=== PATIENT | male | born 1965 | race Caucasian/White ===

== ENCOUNTER 2023-08-21 14:15 | Inpatient (IN) ==
[2023-08-21] MEDS ORDERED: SODIUM CHLORIDE 0.9% 500 ML IV STA (14:37)
[2023-08-21] MEDS ORDERED: SODIUM CHLORIDE 0.9% IV STA ×4 (14:43→19:18)
[2023-08-21] MEDS ORDERED: PROCAINAMIDE IV STA ×4 (14:43→19:18)
[2023-08-21] MEDS ORDERED: PROCAINAMIDE 1,000 MG in SODIUM CHLORIDE 0.9% 240 ML IV SCH ×3 (14:45→17:00)
--- NOTE | 2023-08-21 14:52 | Emergency Department Note ---
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 The patient was getting a preop EKG and was found to have an abnormal EKG. He was sent to the emergency department for further evaluation. The patient has a history of Otbhx-Pcjgkthxw-Endgc. He denies having any chest pain or difficulty breathing. He states he felt dizzy since this morning. He denies having any fever. ROS: See above HPI for pertinent positives & negatives. A total of 10 systems reviewed and were otherwise negative. PAST MEDICAL HISTORY: See Below PAST SURGICAL HISTORY: See Below FAMILY HISTORY: See Below SOCIAL HISTORY: See Below HOME MEDICATIONS: See Below ALLERGIES: See Below VITALS: See Below PHYSICAL EXAMINATION: GENERAL: Patient is awake alert in no acute distress patient is resting comfortably and showing no signs of anxiety EYES: The conjunctivae are clear. The pupils are round and reactive. EARS, NOSE, MOUTH AND THROAT: The nose is without any evidence of any deformity. NECK: The neck is nontender and supple. RESPIRATORY: Normal respiratory effort is noted there is no evidence of wheezing rhonchi or rales CARDIOVASCULAR: Tachycardic and regular heart sounds were noted to auscultation. There is no definite murmur. GASTROINTESTINAL: The abdomen is soft. Abdomen is nontender. MUSCULOSKELETAL/EXTREMITIES: There is no evidence of gross deformity full range of motion is noted in the hips and shoulders. SKIN: There is no obvious evidence of any rash. There are no petechiae, pallor or cyanosis noted. NEUROLOGIC: Patient is awake alert and oriented x3 MEDICAL DECISION MAKING: The patient is a 58-year-old male who presented to the emergency department at the request of cardiology. The patient presented for preadmission testing for surgery on his knee. The patient was found to be in wide-complex tachycardia that could be consistent with atrial flutter. The patient had no specific symptoms but he states he was feeling dizzy since this morning. It is unclear exactly when he started having the symptoms. 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 He is never had atrial flutter or abnormal dysrhythmia associated with the WPW. The patient was treated with IV fluids in the emergency department. He was also treated with IV Ativan and IV procainamide. He was reevaluated multiple times. On reevaluation his rate improved slightly but he still appeared to be in atrial flutter. I discussed this condition with the on-call [facility] hollow handle knife assembler. I also discussed his condition with the on- call [facility] hospitalist. They have agreed to evaluate the patient in the emergency department for further management and disposition. Triage Nursing notes reviewed. Prior medical records reviewed Vital Signs: reviewed and remarkable for tachycardia. Differential diagnosis: Premature contractions, electrolyte abnormality, cardiac dysrhythmia, thyroid dysfunction, pulmonary embolism, infection, gastrointestinal, as well as other pathologies. ER treatment provided: See below Diagnostics interpreted by me: ECG: EKG was obtained in the emergency department. My interpretation is atrial flutter at 155 bpm. There was a right bundle branch block pattern. Nonspecific ST segment abnormalities were noted. This was compared to a tracing of September 23, 2020. Previous tracing revealed normal sinus rhythm. A second EKG was obtained in the emergency department. My interpretation is wide-complex tachycardia 133 bpm. This does appear to be consistent with atrial flutter. This was compared to the earlier tracing. There was a decrease in rate otherwise no significant changes were noted. Cardiac Monitoring: An order was placed for continuous cardiac monitoring. The monitor shows a rate of 132 bpm with atrial flutter. Laboratory studies: As stated above and show below. Imaging studies: See below. Radiographic imaging was reviewed by myself Consultation(s): I discussed this case with Dr. Lanier who is on-call for the [facility] cardiology group. ED COURSE: Procedures: none Critical Care: I have personally spent greater than 65 minutes of critical care time in the direct management of this patient. This includes bedside care, interpretation of diagnostic studies, and testing, discussion with consultants, patient, and family members, and other required patient management activities. This 65 minutes is in excess of all separately billable procedures. Past Med/Surg History Medical History Hypercalcemia Vitamin D deficiency Superior labrum refgdgxn-vw-qmvjgdshd (SLAP) tear of left shoulder 2020 Full thickness rotator cuff [facility] Elevated serum creatinine Family history of colon cancer History of anesthesia complications respiratory issues during colonoscopy 10/2019 [place] - says they had to stop the procedure WPW (Isrsb-Qtyxzorbo-Vwlfn syndrome) no hollow handle knife assembler Hypertension Hypercholesteremia Surgical History History of arthroscopic surgery of shoulder 2020 History of arthroscopy of left shoulder October 11, 2020 History of open reduction and internal fixation (ORIF) procedure right hand--hardware removed History of colonoscopy most recent 10/2019 [facility] History of tooth extraction all top teeth Family History Mother Myocardial infarction Breast cancer Hypertension Father Colorectal cancer at 47 secondary to colorectal cancer Other No family history of adverse response to anesthesia Denies family history of Ovarian cancer Prostate cancer Social History Smoking Status: Never smoker Tobacco Type: Smokeless Tobacco (Dip or Chew) Age Started Using Tobacco: 17; Cigarettes Per Day: chews 1 can a day; Second Hand Exposure: No; Do You Dip or Chew Tobacco: Yes; Hx Alcohol Use: Yes Alcohol type: beer Alcohol Intake Frequency: 4 or More x per/Week Alcohol Intake Frequency Comment: 2-3 per day Hx Substance Use: No Preferred Language: Beninese Communication Ability: Effective Visual Impairment: Partially Limited Hearing Ability: Normal Shipping Technician Required: No Beliefs That Will Affect Care: None marital status: single Current Living Situation: Alone current occupational status: employed current occupation: Construction How many Children do You have: 0 Feels Safe at Home: Yes Childhood Exposure to Second-Hand Smoke: Yes (father) Diet: regular caffeine: No during the past year weight has: remained stable Dental Care, Regularly: No Physical Activity Frequency: 5-6 Times per Week Physical Activity Frequency Comment: work Seatbelt Use: never Sunscreen Use: No Assistive Devices: Denture - Upper and Glasses Allergies Allergies Allergy/AdvReac Type Severity Reaction Status Date / Time lisinopril AdvReac Intermediate Cough Verified 08/21/23 15:09 Home Meds Previous Rx's Medication Instructions Recorded carvedilol 12.5 mg tablet 12.5 mg PO BID #60 tabs 11/26/22 losartan 100 mg tablet 100 mg PO DAILY #30 tabs 05/15/23 amlodipine 5 mg tablet 10 mg (2 x 5 mg) PO DAILY #60 tabs 06/19/23 atorvastatin 20 mg tablet 20 mg PO HS #30 tabs 06/19/23 Results & Data (ED) Vital Signs Vital Signs - 24 hr 08/21/23 14:31 08/21/23 14:32 08/21/23 14:32 Temperature 36.5 C Temperature Source Oral Pulse Rate 167 H 154 H Pulse Rate [Apical] Pulse Rate from SpO2 Sensor 154 H Respiratory Rate 20 22 Respiratory Effort / Characteristics Respiratory Depth Respiratory Pattern Blood Pressure 167/142 H 167/142 H Blood Pressure [Right Arm] Blood Pressure Mean 157 150 Blood Pressure Mean [Right Arm] Blood Pressure Position Lying Pulse Oximetry 98 99 Oxygen Delivery Method Room Air Room Air Sepsis Recent Fever Within 48 Hours No Sepsis New/Unexplained Change in Mental Status No Sepsis Action Taken by Nursing No Action Required 08/21/23 14:33 08/21/23 15:00 08/21/23 15:22 Temperature Temperature Source Pulse Rate 155 H 158 H 155 H Pulse Rate [Apical] Pulse Rate from SpO2 Sensor 156 H Respiratory Rate 19 28 H Respiratory Effort / Characteristics Respiratory Depth Respiratory Pattern Blood Pressure 142/108 H 157/107 H Blood Pressure [Right Arm] Blood Pressure Mean 119 123 Blood Pressure Mean [Right Arm] Blood Pressure Position Pulse Oximetry 97 96 Oxygen Delivery Method Room Air Room Air Sepsis Recent Fever Within 48 Hours Sepsis New/Unexplained Change in Mental Status Sepsis Action Taken by Nursing 08/21/23 15:30 08/21/23 15:40 08/21/23 15:43 Temperature Temperature Source Pulse Rate 155 H 160 H Pulse Rate [Apical] Pulse Rate from SpO2 Sensor 161 H 80 Respiratory Rate 30 H 30 H Respiratory Effort / Characteristics Respiratory Depth Respiratory Pattern Blood Pressure 159/121 H 158/102 H Blood Pressure [Right Arm] Blood Pressure Mean 133 120 Blood Pressure Mean [Right Arm] Blood Pressure Position Pulse Oximetry 95 96 97 Oxygen Delivery Method Room Air Room Air Room Air Sepsis Recent Fever Within 48 Hours Sepsis New/Unexplained Change in Mental Status Sepsis Action Taken by Nursing 08/21/23 15:50 08/21/23 16:00 08/21/23 16:05 Temperature Temperature Source Pulse Rate 155 H 150 H 150 H Pulse Rate [Apical] Pulse Rate from SpO2 Sensor 156 H 149 H 149 H Respiratory Rate 33 H 24 17 Respiratory Effort / Characteristics Respiratory Depth Respiratory Pattern Blood Pressure 142/105 H 146/111 H 136/114 H Blood Pressure [Right Arm] Blood Pressure Mean 117 122 121 Blood Pressure Mean [Right Arm] Blood Pressure Position Pulse Oximetry 97 98 98 Oxygen Delivery Method Room Air Room Air Room Air Sepsis Recent Fever Within 48 Hours Sepsis New/Unexplained Change in Mental Status Sepsis Action Taken by Nursing 08/21/23 16:09 08/21/23 16:10 08/21/23 16:15 Temperature Temperature Source Pulse Rate 154 H 153 H Pulse Rate [Apical] 156 H Pulse Rate from SpO2 Sensor 148 H 79 Respiratory Rate 29 H 22 42 H Respiratory Effort / Characteristics Non-Labored Spontaneous Respiratory Depth Normal Respiratory Pattern Regular Tachypnea Blood Pressure 162/112 H 184/114 H Blood Pressure [Right Arm] 136/114 H Blood Pressure Mean 128 137 Blood Pressure Mean [Right Arm] 121 Blood Pressure Position Pulse Oximetry 98 98 98 Oxygen Delivery Method Room Air Room Air Room Air Sepsis Recent Fever Within 48 Hours Sepsis New/Unexplained Change in Mental Status Sepsis Action Taken by Nursing 08/21/23 16:25 08/21/23 16:30 08/21/23 16:35 Temperature Temperature Source Pulse Rate 137 H 148 H 138 H Pulse Rate [Apical] Pulse Rate from SpO2 Sensor 139 H 96 H 138 H Respiratory Rate 31 H 20 24 Respiratory Effort / Characteristics Respiratory Depth Respiratory Pattern Blood Pressure 141/112 H 119/88 123/96 Blood Pressure [Right Arm] Blood Pressure Mean 121 98 105 Blood Pressure Mean [Right Arm] Blood Pressure Position Pulse Oximetry 98 98 97 Oxygen Delivery Method Room Air Room Air Room Air Sepsis Recent Fever Within 48 Hours Sepsis New/Unexplained Change in Mental Status Sepsis Action Taken by Nursing 08/21/23 16:40 08/21/23 16:45 08/21/23 16:50 Temperature Temperature Source Pulse Rate 141 H 136 H 138 H Pulse Rate [Apical] Pulse Rate from SpO2 Sensor 140 H 137 H 139 H Respiratory Rate 12 15 25 H Respiratory Effort / Characteristics Respiratory Depth Respiratory Pattern Blood Pressure 123/91 131/105 H 147/119 H Blood Pressure [Right Arm] Blood Pressure Mean 101 113 128 Blood Pressure Mean [Right Arm] Blood Pressure Position Pulse Oximetry 97 97 97 Oxygen Delivery Method Room Air Room Air Room Air Sepsis Recent Fever Within 48 Hours Sepsis New/Unexplained Change in Mental Status Sepsis Action Taken by Nursing 08/21/23 16:55 08/21/23 17:00 08/21/23 17:06 Temperature Temperature Source Pulse Rate 134 H 135 H 135 H Pulse Rate [Apical] Pulse Rate from SpO2 Sensor 135 H 137 H 136 H Respiratory Rate 16 17 27 H Respiratory Effort / Characteristics Respiratory Depth Respiratory Pattern Blood Pressure 133/106 H 125/102 H 135/99 Blood Pressure [Right Arm] Blood Pressure Mean 115 109 111 Blood Pressure Mean [Right Arm] Blood Pressure Position Pulse Oximetry 98 98 96 Oxygen Delivery Method Room Air Room Air Room Air Sepsis Recent Fever Within 48 Hours Sepsis New/Unexplained Change in Mental Status Sepsis Action Taken by Nursing 08/21/23 17:10 08/21/23 17:15 08/21/23 17:20 Temperature Temperature Source Pulse Rate 132 H 135 H 134 H Pulse Rate [Apical] Pulse Rate from SpO2 Sensor 122 H 134 H Respiratory Rate 12 13 21 Respiratory Effort / Characteristics Respiratory Depth Respiratory Pattern Blood Pressure 119/91 128/96 152/113 H Blood Pressure [Right Arm] Blood Pressure Mean 100 106 126 Blood Pressure Mean [Right Arm] Blood Pressure Position Pulse Oximetry 95 97 98 Oxygen Delivery Method Room Air Room Air Room Air Sepsis Recent Fever Within 48 Hours Sepsis New/Unexplained Change in Mental Status Sepsis Action Taken by Nursing 08/21/23 17:25 08/21/23 17:31 08/21/23 17:36 Temperature Temperature Source Pulse Rate 138 H 124 H 134 H Pulse Rate [Apical] Pulse Rate from SpO2 Sensor 137 H 91 H 134 H Respiratory Rate 12 18 14 Respiratory Effort / Characteristics Respiratory Depth Respiratory Pattern Blood Pressure 126/103 H 136/104 H 118/98 Blood Pressure [Right Arm] Blood Pressure Mean 110 114 104 Blood Pressure Mean [Right Arm] Blood Pressure Position Pulse Oximetry 98 94 98 Oxygen Delivery Method Room Air Room Air Room Air Sepsis Recent Fever Within 48 Hours Sepsis New/Unexplained Change in Mental Status Sepsis Action Taken by Nursing 08/21/23 17:40 08/21/23 17:45 08/21/23 17:50 Temperature Temperature Source Pulse Rate 132 H 134 H 132 H Pulse Rate [Apical] Pulse Rate from SpO2 Sensor 134 H 135 H 127 H Respiratory Rate 23 17 12 Respiratory Effort / Characteristics Respiratory Depth Respiratory Pattern Blood Pressure 118/98 140/98 132/98 Blood Pressure [Right Arm] Blood Pressure Mean 104 112 109 Blood Pressure Mean [Right Arm] Blood Pressure Position Pulse Oximetry 98 98 97 Oxygen Delivery Method Room Air Room Air Room Air Sepsis Recent Fever Within 48 Hours Sepsis New/Unexplained Change in Mental Status Sepsis Action Taken by Nursing 08/21/23 18:00 08/21/23 18:00 08/21/23 18:06 Temperature Temperature Source Pulse Rate 127 H 133 H Pulse Rate [Apical] 135 H Pulse Rate from SpO2 Sensor 77 112 H Respiratory Rate 27 H 18 13 Respiratory Effort / Characteristics Non-Labored Spontaneous Respiratory Depth Normal Respiratory Pattern Blood Pressure 157/101 H 142/108 H Blood Pressure [Right Arm] 157/101 H Blood Pressure Mean 119 119 Blood Pressure Mean [Right Arm] 119 Blood Pressure Position Pulse Oximetry 97 95 94 Oxygen Delivery Method Room Air Room Air Room Air Sepsis Recent Fever Within 48 Hours Sepsis New/Unexplained Change in Mental Status Sepsis Action Taken by Nursing 08/21/23 18:15 08/21/23 18:19 08/21/23 18:21 Temperature Temperature Source Pulse Rate 130 H 134 H Pulse Rate [Apical] Pulse Rate from SpO2 Sensor 127 H Respiratory Rate 25 H Respiratory Effort / Characteristics Respiratory Depth Respiratory Pattern Blood Pressure 134/109 H 135/98 Blood Pressure [Right Arm] Blood Pressure Mean 117 107 Blood Pressure Mean [Right Arm] Blood Pressure Position Pulse Oximetry 96 Oxygen Delivery Method Room Air Sepsis Recent Fever Within 48 Hours Sepsis New/Unexplained Change in Mental Status Sepsis Action Taken by Nursing 08/21/23 18:30 08/21/23 18:45 Temperature Temperature Source Pulse Rate 136 H Pulse Rate [Apical] 132 H Pulse Rate from SpO2 Sensor 135 H Respiratory Rate 25 H 27 H Respiratory Effort / Characteristics Non-Labored Spontaneous Respiratory Depth Normal Respiratory Pattern Regular Blood Pressure 119/98 Blood Pressure [Right Arm] 127/96 Blood Pressure Mean 105 Blood Pressure Mean [Right Arm] 106 Blood Pressure Position Pulse Oximetry 97 97 Oxygen Delivery Method Room Air Room Air Sepsis Recent Fever Within 48 Hours Sepsis New/Unexplained Change in Mental Status Sepsis Action Taken by [facility] Medications Current Medication List: was personally reviewed by me Laboratory Data Attestation: I reviewed the patient's lab results. 08/21/23 14:35 08/21/23 14:35 Lab Results 08/21/23 08/21/23 08/21/23 Range/Units 14:35 15:48 16:55 WBC 7.87 (4.8-10.8) K/ul RBC 5.60 (4.70-6.10) M/uL Hgb 17.3 (14.0-18.0) g/dl Hct 49.3 (42.0-52.0) % MCV 88.0 (80.0-100.0) fL MCH 30.9 (25.0-34.0) pg MCHC 35.1 (32.0-36.0) g/dL RDW Std Deviation 42.5 (36.4-46.3) fL RDW Coeff of Sheela 13.2 (11.5-14.5) % Plt Count 252 (130-400) K/uL MPV 9.5 (9.4-12.4) fL Immature Gran % (Auto) 1.1 % Neut % (Auto) 66.6 % Lymph % (Auto) 19.8 % [place] % (Auto) 9.1 % Eos % (Auto) 2.5 % Baso % (Auto) 0.9 % Neut # (Auto) 5.23 (1.40-6.50) K/uL Lymph # (Auto) 1.56 (1.20-3.40) K/uL [place] # (Auto) 0.72 H (0.11-0.59) K/uL Eos # (Auto) 0.20 (0.00-0.50) K/uL Baso # (Auto) 0.07 (0.00-0.20) K/uL Immature Gran # (Auto) 0.09 (0.01-0.20) K/uL PT Cancelled 11.9 INR Cancelled 1.1 APTT Cancelled 29 PTT Ratio Cancelled 1.0 Sodium 138 (136-145) mmol/L Potassium 4.3 (3.5-5.1) mmol/L Chloride 104 (98-107) mmol/L Carbon Dioxide 25 (21-32) mmol/L Anion Gap 9 (3-11) BUN 26 H (6-23) mg/dl Creatinine 1.29 (0.6-1.4) mg/dl Est Cr Clr Drug Dosing 72.6 ml/min Est GFR ( Amer) 71.4 ml/min Est GFR (Non-Af Amer) 61.6 ml/min BUN/Creatinine Ratio 20.2 H (10-20) Glucose 95 (70-99(Fasting)) mg/dl Calcium 10.5 H (8.6-10.3) mg/dl Magnesium 2.2 (1.7-2.4) mg/dl Total Bilirubin 0.9 (0.2-1.0) mg/dl AST 30 (13-39) U/L ALT 32 (7-52) U/L Alkaline Phosphatase 79 (34-104) U/L Total Protein 7.9 (6.0-8.3) gm/dl Albumin 4.6 (3.4-5.0) gm/dl Globulin 3.3 (2.5-4.0) gm/dl Albumin/Globulin Ratio 1.4 (0.9-2) TSH 1.150 (0.300-4.500) uIu/ml Urine Color Yellow Urine Appearance Clear (Clear) Urine pH 5.0 (4.5-7.5) Ur Specific [place] 1.020 (1.000-1.030) Urine Protein Trace H (Negative) Urine Glucose (UA) Negative (Negative) Urine Ketones Trace H (Negative) Urine Blood Negative (Negative) Urine Nitrite Negative (Negative) Urine Bilirubin Negative (Negative) Urine Urobilinogen Negative (Negative) Ur Leukocyte Esterase Negative (Negative) Urine WBC (Auto) 1-5 (0-5) /hpf Urine RBC (Auto) 0-4 (0-4) /hpf U Hyaline Cast (Auto) >30 H (0-5) /lpf U Epithel Cells (Auto) 10-20 H (0-5) /lpf Urine Bacteria (Auto) Negative (Negative) Administered Medications Discontinued Medications Sodium Chloride (Nss) 500 mls @ 999 mls/hr IV .Q31M STA Stop: 08/21/23 15:07 Last Infusion: 08/21/23 16:19 Dose: Infused Documented By: Admin: 08/21/23 15:33 Dose: 999 mls/hr Documented By: LYSSA Procainamide HCl 1,000 mg/ (Sodium Chloride) 250 mls @ 30 mls/hr IV .Q8H20M PENDING SALE TO [facility]; Protocol Stop: 09/20/23 14:44 Last Infusion: 08/21/23 16:20 Dose: 0 mg/min, 0 mls/hr Documented By: Infusion: 08/21/23 15:43 Dose: 2 mg/min, 30 mls/hr Documented By: Admin: 08/21/23 15:14 Dose: 1 mg/min, 15 mls/hr Documented By: Thiamine HCl 100 mg/ Syringe 10 mls @ 2 mls/min IV NOW STA Stop: 08/21/23 14:59 Last Admin: 08/21/23 15:32 Dose: 2 mls/min Documented By: Procainamide HCl 1,000 mg/ (Sodium Chloride) 250 mls @ 250 mls/hr IV .Q1H TIAGO; Protocol Stop: 09/20/23 14:44 Last Infusion: 08/21/23 17:04 Dose: Infused Documented By: Admin: 08/21/23 16:01 Dose: 250 mls/hr Documented By: Magnesium Sulfate/Dextrose (Magnesium Sulfate / D5w) 1 gm in 100 mls @ 100 mls/hr IV NOW STA Stop: 08/21/23 17:06 Last Infusion: 08/21/23 17:12 Dose: Infused Documented By: Admin: 08/21/23 16:12 Dose: 100 mls/hr Documented By: Procainamide HCl 500 mg/ (Sodium Chloride) 105 mls @ 252 mls/hr IV NOW STA; Protocol Stop: 08/21/23 17:24 Last Infusion: 08/21/23 17:45 Dose: Infused Documented By: Admin: 08/21/23 17:19 Dose: 20 mg/min, 252 mls/hr Documented By: Lorazepam (Lorazepam 1 Mg/1 Ml Syr Ed Inj Use) 1 mg IV ONE STA Stop: 08/21/23 14:56 Last Admin: 08/21/23 15:09 Dose: 1 mg Documented By: Imaging Data Attestation: I personally reviewed and interpreted this imaging study as follows: My Impression: 1 view chest x-ray was obtained in the emergency department. My interpretation is no free air or definite infiltrate, final report below. Radiologist's Impression: Chest X-Ray 08/21/23 14:37 XR chest 1V portable CLINICAL HISTORY: Dysrhythmia TECHNIQUE: Single frontal radiograph of the chest was obtained. Comparison: None available at the time of this dictation. FINDINGS: No lines and tubes are seen. The cardiomediastinal silhouette is normal. The lungs are clear. No evidence of pleural effusion or pneumothorax. IMPRESSION: No acute chest disease. ACT 112: Negative or not required by law. Electronically signed by: Wallace Saxena M.D. 08/21/2023 3:06 PM Discharge Plan Visit Data Chief Complaint: Tachycardia Stated Complaint: TACHYCARDIA ED Provider: Christiano Scruggs Discharge Problem: Atrial flutter, WPW (Rfuir-Sincsftam-Eiqeg syndrome), Heart palpitations Patient Disposition: Being Evaluated by Hospitalist Forms Stand Alone Forms: My [facility] Prescriptions Prescriptions: No Action carvedilol 12.5 mg tablet 12.5 mg PO BID Qty: 60 2RF Rx Instructions: PER PT "KIND OF FORGET TO TAKE MEDS, HARD FOR ME TO SWALLOW MEDS, EVEN IF I CRUSH AND MIX WITH PUDDING OR SOMETHING".must administer with a meal/food losartan 100 mg tablet 100 mg PO DAILY Qty: 30 2RF Rx Instructions: PER PT "KIND OF FORGET TO TAKE MEDS, HARD FOR ME TO SWALLOW MEDS, EVEN IF I CRUSH AND MIX WITH PUDDING OR SOMETHING". amlodipine 5 mg tablet 10 mg PO DAILY Qty: 60 2RF Rx Instructions: PER PT "KIND OF FORGET TO TAKE MEDS, HARD FOR ME TO SWALLOW MEDS, EVEN IF I CRUSH AND MIX WITH PUDDING OR SOMETHING". atorvastatin 20 mg tablet 20 mg PO HS Qty: 30 3RF Rx Instructions: PER PT "KIND OF FORGET TO TAKE MEDS, HARD FOR ME TO SWALLOW MEDS, EVEN IF I CRUSH AND MIX WITH PUDDING OR SOMETHING". Referrals Referrals: Evgeny Bowers CRNP [Primary Care Provider] - Discharge Problem: Atrial flutter Qualifiers: Atrial flutter type: unspecified Qualified Code(s): I48.92 - Unspecified atrial flutter
[2023-08-21] MEDS ORDERED: LORazepam 1 MG/1 ML SYR ED Inj Use IV STA ×2 (14:55→18:58)
[2023-08-21] MEDS ORDERED: THIAMINE HCL 100 MG in SYRINGE 9 ML IV STA (14:55)
--- NOTE | 2023-08-21 15:07 | XRay Report ---
XR chest 1V portable CLINICAL HISTORY: Dysrhythmia TECHNIQUE: Single frontal radiograph of the chest was obtained. Comparison: None available at the time of this dictation. FINDINGS: No lines and tubes are seen. The cardiomediastinal silhouette is normal. The lungs are clear. No evid ence of pleural effusion or pneumothorax. IMPRESSION: No acute chest disease. ACT 112: Negative or not required by law. Electronically signed by: Wallace Saxena M.D. 08/21/2023 3:06 PM
[2023-08-21 15:08] LABS: Basophils # (auto) 0.07 K/uL (0.00-0.20); Basophils % (auto) 0.9 %; Eosinophils % (auto) 2.5 %; Hematocrit (blood only) 49.3 % (42.0-52.0); Hemoglobin 17.3 g/dl (14.0-18.0); Immature Granulocytes # (auto) 0.09 K/uL (0.01-0.20); Immature Granulocytes % (auto) 1.1 %; Lymphocytes # (auto) 1.56 K/uL (1.20-3.40); Lymphocytes % (auto) 19.8 %; Mean Corpuscular Hemoglobin 30.9 pg (25.0-34.0); Mean Corpuscular Hgb Conc 35.1 g/dL (32.0-36.0); Mean Platelet Volume 9.5 fL (9.4-12.4); Monocytes # (auto) 0.72 K/uL (0.11-0.59); Monocytes % (auto) 9.1 %; Neutrophils # (auto) 5.23 K/uL (1.40-6.50); Neutrophils % (auto) 66.6 %; Platelet Count 252 K/uL (130-400); RDW Coefficient of Variation 13.2 % (11.5-14.5); RDW Standard Deviation 42.5 fL (36.4-46.3); White Blood Count 7.87 K/ul (4.8-10.8)
[2023-08-21 15:21] LABS: Albumin Globulin Ratio 1.4 (0.9-2); Albumin Level 4.6 gm/dl (3.4-5.0); BUN Creatinine Ratio 20.2 (10-20); Bilirubin,Total 0.9 mg/dl (0.2-1.0); Calcium 10.5 mg/dl (8.6-10.3); Creatinine Clr Calc Pharmacy 72.6 ml/min; Est GFR (African American) 71.4 ml/min; Est GFR (Non-African American) 61.6 ml/min; Globulin 3.3 gm/dl (2.5-4.0); Magnesium 2.2 mg/dl (1.7-2.4); Potassium 4.3 mmol/L (3.5-5.1); Total Protein 7.9 gm/dl (6.0-8.3)
--- NOTE | 2023-08-21 15:34 | Electrocardiogram Report ---
Test Reason : Blood Pressure : / mmHG Vent. Rate : 155 BPM Atrial Rate : 000 BPM P-R Int : 000 ms QRS Dur : 132 ms QT Int : 300 ms P-R-T Axes : 000 022 021 degrees QTc Int : 482 ms Probable Atrial flutter with 2 to 1 block Right bundle branch block Abnormal ECG When compared with ECG of 21-AUG-2023 14:08, (unconfirmed) No significant change was found Confirmed by Christiano Lanier ([id number]) on 08/21/2023 3:34:06 PM Referred By: REFERRED SELF Confirmed By:Christiano Lanier
[2023-08-21 15:36] LABS: Thyroid Stimulating Hormone 1.15 uIu/ml (0.300-4.500)
[2023-08-21] MEDS ORDERED: MAGNESIUM SULFATE / D5W 1 GM/100 ML BAG IV STA (16:07)
[2023-08-21 16:34] LABS: INR 1.1 (0.9-1.1); Partial Thromboplastin Time 29 Seconds (21-31); Prothrombin Time 11.9 Seconds (9.0-12.0)
[2023-08-21 17:15] LABS: Appearance Urine Clear (Clear); Bacteria Urine Automated Negative (Negative); Bilirubin Urine Negative (Negative); Blood Urine Negative (Negative); Color Urine Yellow; Glucose Urine UA Negative (Negative); Ketones Urine Trace (Negative); Leukocyte Esterase Urine Negative (Negative); Nitrite Urine Negative (Negative); Protein Urine Trace (Negative); RBC Urine Automated 0-4 /hpf (0-4); Urobilinogen Urine Negative (Negative)
[2023-08-21 17:35] LABS: Cast Urine Automated >30 /lpf (0-5)
[2023-08-21] MEDS ORDERED: SODIUM CHLORIDE 0.9% 500 ML IV ONE (19:02)
[2023-08-21] MEDS ORDERED: Heparin IV Adult Wt-Based Low-Dose w/ INITIAL Bolus Protocol IV SCH (19:34)
[2023-08-21] MEDS ORDERED: HEPARIN SOD (PORCINE) 1000 UNIT/ML IV ONE (19:40)
[2023-08-21] MEDS ORDERED: HEPARIN SODIUM/DEXTROSE 25,000 UNITS/500 ML BAG IV SCH (19:45)
--- NOTE | 2023-08-21 19:51 | History & Physical Report ---
Date of Service August 21, 2023 Assessment & Plan (1) Tachyarrhythmia: Plan: Initial EKG with rate 147, possible a flutter with 2-1 block and right bundle branch block Patient reportedly with history of delta wave/WPW with no history of ablation. Did review case with cardiology. Initially was concerning based on history of WPW, although delta wave is not noted on last baseline EKG in 2020. Due to prior history of suspected WPW patient was loaded with procainamide. Of note this is missed documented in the EMR but did confirm with pharmacy compounding, while MAR appears that patient received 24mg/kg (2500mg), he actually received 17 mg/kg. Reviewed with Cards/EP. - At his last baseline EKG in 2020 shows no evidence of a delta wave patient does not show anterograde conduction. May have retrograde conduction, but risk of AV monty bob agents is minimal and patient has tolerated beta-bob. Suspect his underlying rhythm is SVT, ?AVNRT, with retrograde P waves present. Risk of adenosine with VT degeneration is minimal in this patient, especially as delta wave was no longer present 2020, and if he does not convert on procainamide is a reasonable to give adenosine to treat SVT vs identify underlying atrial arrhythmia. Suspect a flutter is unlikely, A-fib is possible. Reasonable to continue heparin at this time. Remains normotensive. Patient is currently hemodynamically stable with a blood pressure of 130s/90s, rate has slowed to 120s. Will observe and may convert following Procan load. If patient becomes hypotensive then will assess for synchronized cardioversion versus dosing trial, discussed and signed out to carmelina esquivel. Cardiology is consulted to see in the morning (2) WPW (Vlqaq-Dotpbdwvh-Tnrwp syndrome): Plan: Patient with history of WPW and reported delta waves on prior EKGs, no delta wave is present on 2020 EKG in our EMR (3) Alcohol abuse: Plan: No signs of withdrawal on admission, patient is trying to self taper alcohol and seeing a counselor and wishes to limited alcohol. Very high intake last drink 7 PM 12/. Medical alcohol level is pending ? Atrial arrhythmia due to alcohol abuse Patient has not had any alcohol free days since " "and drinks at least 18-20 beers per day Received thiamine in the ER Given 1 dose of Valium 5 mg, and placed on a AWSS. Continue thiamine, folic acid (4) Hypertension: Plan: Antihypertensives temporarily held (5) Hypercholesteremia: Plan: Statin continue Plan DVT prophylaxis: Heparin denies Disposition: PCU. 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 Teja reported he felt well up until this morning when he felt a little lightheaded and feeling of palpitation. He reports he has not had pain at any point in his chest. No chest pressure. He is not short of breath. He reports he follows with cardiology more than a decade ago and has a history of WPW but has never had an ablation. Reports he does drink, is trying to cut back and is seeing a counselor. Currently cut back to 18-20 beers, up to 30 previously. He has not had any alcohol free days since "the ". He has never been through withdrawal, but notes he has never been without alcohol in the recent past. Last drink was last night around 7 PM. No episodes of GI bleeding, denies history of liver disease, denies upset stomach. Denies fever, chills, sweats. No recent cough. Denies aspiration events. Denies falls. Reports no other medical problems other than high blood pressure, has history of Qkeds-Xmnmauhwl-Ldhra, and thinks he is on a cholesterol medicine but does not remember the name of this. Medical History: Reviewed Medications: Reviewed Surgical History: Reviewed Family history: Reviewed Allergies: Reviewed Social History: Alcohol as noted, snuff 2 cans/day Code Status: Full Allergies Allergy/AdvReac Type Severity Reaction Status Date / Time lisinopril AdvReac Intermediate Cough Verified 08/21/23 15:09 Home Medications Medication Instructions Recorded Confirmed Type carvedilol 12.5 mg tablet 12.5 mg PO BID #60 tabs 11/26/22 08/21/23 Rx losartan 100 mg tablet 100 mg PO DAILY #30 tabs 05/15/23 08/21/23 Rx amlodipine 5 mg tablet 10 mg (2 x 5 mg) PO DAILY #60 tabs 06/19/23 08/21/23 Rx atorvastatin 20 mg tablet 20 mg PO HS #30 tabs 06/19/23 08/21/23 Rx Past Med/Surg History Medical History Hypercalcemia Vitamin D deficiency Superior labrum pmlxuwmd-pi-navfgfjex (SLAP) tear of left shoulder 2020 [email or web address] Elevated serum creatinine Family history of colon cancer History of anesthesia complications respiratory issues during colonoscopy 10/2019 [place] - says they had to stop the procedure WPW (Minrq-Rymndadjd-Jaifs syndrome) no psychiatric np Hypertension Hypercholesteremia Surgical History [email or web address] History of arthroscopy of left shoulder October 11, 2020 History of open reduction and internal fixation (ORIF) procedure right hand--hardware removed History of colonoscopy most recent 10/2019 [facility] History of tooth extraction all top teeth Family History Mother Myocardial infarction Breast cancer Hypertension Father Colorectal cancer at 47 secondary to colorectal cancer Other No family history of adverse response to anesthesia Denies family history of Ovarian cancer Prostate cancer Social History Smoking Status: Never smoker Tobacco Type: Smokeless Tobacco (Dip or Chew) Age Started Using Tobacco: 17; Cigarettes Per Day: chews 1 can a day; Second Hand Exposure: No; Do You Dip or Chew Tobacco: Yes; Hx Alcohol Use: Yes Alcohol type: beer Alcohol Intake Frequency: 4 or More x per/Week Alcohol Intake Frequency Comment: 2-3 per day Hx Substance Use: No Preferred Language: [place] Communication Ability: Effective Visual Impairment: Partially Limited Hearing Ability: Normal Dredge Mate Required: No Beliefs That Will Affect Care: None marital status: single Current Living Situation: Alone current occupational status: employed current occupation: Construction How many Children do You have: 0 Feels Safe at Home: Yes Childhood Exposure to Second-Hand Smoke: Yes (father) Diet: regular caffeine: No during the past year weight has: remained stable Dental Care, Regularly: No Physical Activity Frequency: 5-6 Times per Week Physical Activity Frequency Comment: work Seatbelt Use: never Sunscreen Use: No Assistive Devices: Denture - Upper and Glasses Physical Exam Physical Exam: General: A&Ox3. NAD. Cooperative. HEENT: Atraumatic, normocephalic. Vision/hearing grossly intact, pupils equal and reactive to Pulm: CTAB A&P. -wheezes, -rales, -rhonchi. Symmetrical chest rise. No increased work of breathing. No respiratory distress. Cardiac: tachycardic, -mrg. Radial pulses intact and symmetrical. Abdominal: Nontender, nondistended, soft. BS present. Extremities: Warm, dry. Strength and sensation intact in all 4 extremities. No tremor, no diaphoresis Results & Data Results & Data Vital Signs (Past 12 Hours) Vital Signs Temp Pulse Pulse Resp BP BP Pulse Ox 08/21/23 18:45 132 H 27 H 127/96 97 08/21/23 18:30 136 H 25 H 119/98 97 08/21/23 18:21 135/98 08/21/23 18:19 134 H 08/21/23 18:15 130 H 25 H 134/109 H 96 08/21/23 18:06 133 H 13 142/108 H 94 08/21/23 18:00 127 H 18 157/101 H 95 08/21/23 18:00 135 H 27 H 157/101 H 97 08/21/23 17:50 132 H 12 132/98 97 08/21/23 17:45 134 H 17 140/98 98 08/21/23 17:40 132 H 23 118/98 98 08/21/23 17:36 134 H 14 118/98 98 08/21/23 17:31 124 H 18 136/104 H 94 08/21/23 17:25 138 H 12 126/103 H 98 08/21/23 17:20 134 H 21 152/113 H 98 08/21/23 17:15 135 H 13 128/96 97 08/21/23 17:10 132 H 12 119/91 95 08/21/23 17:06 135 H 27 H 135/99 96 08/21/23 17:00 135 H 17 125/102 H 98 08/21/23 16:55 134 H 16 133/106 H 98 08/21/23 16:50 138 H 25 H 147/119 H 97 08/21/23 16:45 136 H 15 131/105 H 97 08/21/23 16:40 141 H 12 123/91 97 08/21/23 16:35 138 H 24 123/96 97 08/21/23 16:30 148 H 20 119/88 98 08/21/23 16:25 137 H 31 H 141/112 H 98 08/21/23 16:15 153 H 42 H 184/114 H 98 08/21/23 16:10 154 H 22 162/112 H 98 08/21/23 16:09 156 H 29 H 136/114 H 98 08/21/23 16:05 150 H 17 136/114 H 98 08/21/23 16:00 150 H 24 146/111 H 98 08/21/23 15:50 155 H 33 H 142/105 H 97 08/21/23 15:43 97 08/21/23 15:40 160 H 30 H 158/102 H 96 08/21/23 15:30 155 H 30 H 159/121 H 95 08/21/23 15:22 155 H 28 H 157/107 H 96 08/21/23 15:00 158 H 19 142/108 H 97 08/21/23 14:33 155 H 08/21/23 14:32 154 H 22 99 08/21/23 14:32 36.5 C 167 H 20 167/142 H 98 08/21/23 14:31 167/142 H O2 Del Method 08/21/23 18:45 Room Air 08/21/23 18:30 Room Air 08/21/23 18:21 08/21/23 18:19 08/21/23 18:15 Room Air 08/21/23 18:06 Room Air 08/21/23 18:00 Room Air 08/21/23 18:00 Room Air 08/21/23 17:50 Room Air 08/21/23 17:45 Room Air 08/21/23 17:40 Room Air 08/21/23 17:36 Room Air 08/21/23 17:31 Room Air 08/21/23 17:25 Room Air 08/21/23 17:20 Room Air 08/21/23 17:15 Room Air 08/21/23 17:10 Room Air 08/21/23 17:06 Room Air 08/21/23 17:00 Room Air 08/21/23 16:55 Room Air 08/21/23 16:50 Room Air 08/21/23 16:45 Room Air 08/21/23 16:40 Room Air 08/21/23 16:35 Room Air 08/21/23 16:30 Room Air 08/21/23 16:25 Room Air 08/21/23 16:15 Room Air 08/21/23 16:10 Room Air 08/21/23 16:09 Room Air 08/21/23 16:05 Room Air 08/21/23 16:00 Room Air 08/21/23 15:50 Room Air 08/21/23 15:43 Room Air 08/21/23 15:40 Room Air 08/21/23 15:30 Room Air 08/21/23 15:22 Room Air 08/21/23 15:00 Room Air 08/21/23 14:33 08/21/23 14:32 Room Air 08/21/23 14:32 Room Air 08/21/23 14:31 PG Care Time/CCT Total # of Minutes Spent Total Time Spent with Patient: Total time spent is greater than 50% in coordination of care (as documented) at patient's floor/unit and/or counseling patient: Coding Level of Care Code 56847 INT INP/OBS CARE 3/75MIN Diagnoses Tachyarrhythmia R00.0 WPW (Cfdkn-Aprxalgas-Xmmqm syndrome) I45.6 Alcohol abuse F10.10 Hypertension I10 Hypercholesteremia E78.00
[2023-08-21] MEDS ORDERED: diazePAM 5 MG TABLET PO ONE (20:15)
[2023-08-21] MEDS ORDERED: LORazepam 1 MG in SYRINGE 0.5 ML IV PRN (20:33)
[2023-08-21] MEDS ORDERED: MULTI-VITAMIN INFUSION 10 ML, THIAMINE HCL 100 MG, FOLIC ACID 1 MG in SODIUM CHLORIDE 0... IV ONE (21:00)
[2023-08-21] MEDS: LACTATED RINGER'S 1,000 ML IV SCH (21:31)
[2023-08-21] MEDS ORDERED: ACETAMINOPHEN 325 MG TAB PO PRN (23:59)
[2023-08-22 02:55] LABS: BUN Creatinine Ratio 21.3 (10-20); Est GFR (African American) 104.6 ml/min; Est GFR (Non-African American) 90.3 ml/min; Potassium 4.4 mmol/L (3.5-5.1)
[2023-08-22 03:01] LABS: ANTI-Xa, UFH(UnfractionatedHep 0.33 IU/ml (0.3-0.7)
[2023-08-22 03:12] LABS: Basophils # (auto) 0.05 K/uL (0.00-0.20); Basophils % (auto) 1.1 %; Eosinophils # (auto) 0.19 K/uL (0.00-0.50); Eosinophils % (auto) 4.2 %; Hematocrit (blood only) 40.9 % (42.0-52.0); Hemoglobin 13.9 g/dl (14.0-18.0); Immature Granulocytes # (auto) 0.05 K/uL (0.01-0.20); Immature Granulocytes % (auto) 1.1 %; Lymphocytes # (auto) 1.17 K/uL (1.20-3.40); Lymphocytes % (auto) 25.7 %; Mean Corpuscular Hemoglobin 30.6 pg (25.0-34.0); Mean Corpuscular Volume 90.1 fL (80.0-100.0); Mean Platelet Volume 9.6 fL (9.4-12.4); Monocytes # (auto) 0.39 K/uL (0.11-0.59); Monocytes % (auto) 8.6 %; Neutrophils % (auto) 59.3 %; Platelet Count 190 K/uL (130-400); RDW Coefficient of Variation 13.3 % (11.5-14.5); RDW Standard Deviation 44.1 fL (36.4-46.3); Red Blood Count 4.54 M/uL (4.70-6.10); White Blood Count 4.55 K/ul (4.8-10.8)
[2023-08-22 07:47] LABS: ANTI-Xa, UFH(UnfractionatedHep 0.31 IU/ml (0.3-0.7)
--- NOTE | 2023-08-22 07:48 | Hospitalist Progress Note ---
Date of Service August 22, 2023 Assessment & Plan Plan [facility] [place] [address] History & Physical Report Signed Patient: RONDA MORATAYA Admit Date: 08/21/23 MR#: [id number] Att Phy: Acct ID: [id number] Barbara Phy: Evgeny BowersCARINE Date: 1965 Fam Phy: Age: 58 Location: ED Sex: M Room/Bed: cc: ~ *NOTICE TO RECEIVING REPUBLICAN/AGENCY This information is strictly Confidential and protected under [place] law. [place] law prohibits you from making any further disclosure of this information unless further disclosure is expressly permitted by the written consent of the person to whom it pertains or is authorized by law. A general authorization for the release of medical or other information is not sufficient for this purpose. Hospital accepts no responsibility if the information is made available to any other person, INCLUDING THE PATIENT. Date of Service August 21, 2023 Assessment & Plan (1) Tachyarrhythmia Initial EKG with rate 147, possible a flutter with 2-1 block and right bundle branch block Patient reportedly with history of delta wave/WPW with no history of ablation. Did review case with cardiology. Initially was concerning based on history of WPW, although delta wave is not noted on last baseline EKG in 2020. Due to prior history of suspected WPW patient was loaded with procainamide. Of note this is missed documented in the EMR but did confirm with pharmacy compounding, while MAR appears that patient received 24mg/kg (2500mg), he actually received 17 mg/kg. Reviewed with Cards/EP. - At his last baseline EKG in 2020 shows no evidence of a delta wave patient does not show anterograde conduction. May have retrograde conduction, but risk of AV monty bob agents is minimal and patient has tolerated beta-bob. Suspect his underlying rhythm is SVT, ?AVNRT, with retrograde P waves present. Risk of adenosine with VT degeneration is minimal in this patient, especially as delta wave was no longer present 2020, and if he does not convert on procainamide is a reasonable to give adenosine to treat SVT vs identify underlying atrial arrhythmia. Suspect a flutter is unlikely, A-fib is possible. Reasonable to continue heparin at this time. Remains normotensive. Patient is currently hemodynamically stable with a blood pressure of 130s/90s, rate has slowed to 120s. Will observe and may convert following Procan load. If patient becomes hypotensive then will assess for synchronized cardioversion versus dosing trial, discussed and signed out to overnight provider. Cardiology is consulted to see in the morning (2) WPW (Srqld-Jtioplprm-Lmqmk syndrome) Patient with history of WPW and reported delta waves on prior EKGs, no delta wave is present on 2020 EKG in our EMR (3) Alcohol abuse No signs of withdrawal on admission, patient is trying to self taper alcohol and seeing a counselor and wishes to limit alcohol. Very high intake: last drink 7 PM 08/20. Ethanol level, < 10 (admission) ? Atrial arrhythmia due to alcohol abuse Patient has not had any alcohol free days since " "and drinks at least 18-20 beers per day Received thiamine in the ER Given 1 dose of Valium 5 mg, and placed on a AWSS. Continue thiamine, folic acid (4) Hypertension Antihypertensives temporarily held (5) Hypercholesteremia Statin continue Plan DVT prophylaxis: Heparin denies Disposition: PCU. Reviewed with ICU, if patient becomes hypotensive or unstable then can reassess at that time for synchronized cardioversion CODE STATUS: Full Admission and Anticipated Discharge Date Admission Date: August 21, 2023 Subjective Primary Care Provider: CARINE Rodriguez Ronda is a 58-year-old male with a past medical history of Morgan Parkinson White syndrome with no history of ablation, ongoing alcohol abuse attempting to cut down and seeing a counselor, hypertension without CO/A-fib/a flutter history who presented with palpitations and was found to be in a tachyarrhythmia [id number]. Ronda reported he felt well up until this morning when he felt a little lightheaded and feeling of palpitation. He reports he has not had pain at any point in his chest. No chest pressure. He is not short of breath. He reports he follows with cardiology more than a decade ago and has a history of WPW but has never had an ablation. Reports he does drink, is trying to cut back and is seeing a counselor. Currently cut back to 18-20 beers, up to 30 previously. He has not had any alcohol free days since "the ". He has never been through withdrawal, but notes he has never been without alcohol in the recent past. Last drink was last night around 7 PM. No episodes of GI bleeding, denies history of liver disease, denies upset stomach. Denies fever, chills, sweats. No recent cough. Denies aspiration events. Denies falls. Reports no other medical problems other than high blood pressure, has history of Gpmxf-Trlheropw-Yvsnf, and thinks he is on a cholesterol medicine but does not remember the name of this. Dr. Lanier thinks it's just SVT, not atrial flutter, because of the way it responded to procainamide Review of Systems Constitutional: + sweats and + fatigue; no fever (maybe subjective fever) and no chills Respiratory: + cough (productive cough) and + chest c ongestion; no dyspnea Cardiovascular: no chest pain and no palpitations (pt could not feel his tachycardia) Gastrointestinal: + nausea and + diarrhea/loose stools (3/ day for 2-3); no abdominal pain, no vomiting and no constipation Genitourinary: no dysuria or no urinary frequency Neurologic: + tingling (intermittent tingling/itchin ess of soles of feet) Allergy / Immunological: + urticaria (soles of feet) Results & Data Results & Data Vital Signs (Past 12 Hours) Vital Signs Temp Pulse Pulse Resp BP BP Pulse Ox 08/22/23 07:10 69 12 165/105 H 97 08/22/23 06:44 66 08/22/23 06:00 64 15 153/92 H 98 08/22/23 05:00 55 L 19 139/91 96 08/22/23 04:00 55 L 19 137/85 98 08/22/23 03:00 61 156/94 H 95 08/22/23 02:00 56 L 19 141/84 H 98 08/22/23 00:39 36.5 C 64 18 142/92 H 100 08/22/23 00:30 55 L 18 142/92 H 98 08/21/23 23:30 55 L 16 131/89 97 08/21/23 22:30 72 19 150/104 H 96 08/21/23 22:28 59 L 17 122/85 95 08/21/23 22:16 61 08/21/23 22:00 95 H 20 142/111 H 95 08/21/23 21:33 126 H 21 133/102 H 97 08/21/23 21:32 128 H 18 96 08/21/23 21:00 124 H 20 96 08/21/23 21:00 128/105 H 08/21/23 20:30 125 H 24 97 08/21/23 20:30 135/105 H 08/21/23 20:26 126/99 08/21/23 20:26 125 H 15 98 08/21/23 20:20 130/105 H 08/21/23 20:20 127 H 28 H 96 08/21/23 20:15 125 H 23 95 08/21/23 20:15 134/108 H 08/21/23 20:10 127 H 24 97 08/21/23 20:10 131/108 H 08/21/23 20:05 126 H 25 H 97 08/21/23 20:05 127/102 H 08/21/23 20:00 132/95 08/21/23 20:00 125 H 25 H 95 08/21/23 20:00 126 H 26 H 132/95 98 08/21/23 19:55 124 H 25 H 96 08/21/23 19:55 133/111 H 08/21/23 19:50 124 H 26 H 97 08/21/23 19:50 130/106 H 08/21/23 19:45 144/108 H 08/21/23 19:45 125 H 26 H 96 O2 Del Method 08/22/23 07:10 Room Air 08/22/23 06:44 08/22/23 06:00 Room Air 08/22/23 05:00 Room Air 08/22/23 04:00 Room Air 08/22/23 03:00 Room Air 08/22/23 02:00 Room Air 08/22/23 00:39 Room Air 08/22/23 00:30 Room Air 08/21/23 23:30 Room Air 08/21/23 22:30 08/21/23 22:28 08/21/23 22:16 08/21/23 22:00 08/21/23 21:33 08/21/23 21:32 08/21/23 21:00 08/21/23 21:00 08/21/23 20:30 08/21/23 20:30 08/21/23 20:26 08/21/23 20:26 08/21/23 20:20 08/21/23 20:20 08/21/23 20:15 08/21/23 20:15 08/21/23 20:10 08/21/23 20:10 08/21/23 20:05 08/21/23 20:05 08/21/23 20:00 08/21/23 20:00 08/21/23 20:00 Room Air 08/21/23 19:55 08/21/23 19:55 08/21/23 19:50 08/21/23 19:50 08/21/23 19:45 08/21/23 19:45
[2023-08-22] MEDS ORDERED: THIAMINE HCL 100 MG TAB PO SCH ×2 (09:00→21:00)
[2023-08-22] MEDS: LACTATED RINGER'S 1,000 ML IV SCH (09:24)
[2023-08-22] MEDS ORDERED: FOLIC ACID 1 MG TAB PO SCH (09:30)
--- NOTE | 2023-08-22 11:59 | XCELERA ---
[id number] [id number]
--- NOTE | 2023-08-22 12:55 | Cardiology Consultation ---
Date of Consultation August 22, 2023 Assessment & Plan (1) WPW (Yprdy-Pgcdpkawc-Wxrew syndrome): -previously noted delta wave no longer present. -no anterograde conduction across the bypass tract, only retrograde conduction. -no medication restrictions in treating atrial dysrhythmias. (2) Paroxysmal SVT (supraventricular tachycardia): -may be occurring frequently per the patient's history (notes dizziness frequently). -this did occur while on carvedilol. -trial of metoprolol succinate [address] of carvedilol. -follow-up with Dr. Azevedo to consider an SVT ablation. (3) Hypertension: -borderline control on current regimen. (4) Hypercholesteremia: -continue atorvastatin. History of Present Illness Attending Physician: Samir Zamudio DO History of Present Illness Mr. Ching is a 58-year-old male admitted yesterday with a tachycardia and a history of Uihlk-Svklbrztq-Azotm syndrome. This consultation was ordered to assistance cardiac management. The patient's recent history began yesterday when he presented to the cardiac suite for a preoperative EKG. This noted what was presumed to be atrial flutter with 2-1 AV conduction. The patient's symptom was that of dizziness which have been present since the morning. He was sent to the emergency room for further care. Due to his history of WPW, the ER physician opted to use intravenous procainamide rather than an AV active medication. Fortunately, the patient c onverted to sinus rhythm after several hours. The patient was previously followed by Dr. Amato around 2009. An EKG performed office visit in April 2011 noted sinus rhythm with a delta wave/WPW pattern. An EKG performed on September 23, 2020 noted normal sinus rhythm without evidence of a delta wave. The patient does notice dizziness frequently which retrospectively may suggests a symptomatic, paroxysmal SVT. The case was discussed with Dr. Azevedo who is in the midst of numerous long procedures today. The patient will be discharged on a beta-bob and seen as an outpatient by Dr. Azevedo to consider an SVT ablation. Past medical and surgical history 1. Hypertension 2. Hypercholesterolemia 3. History of Inglq-Lcdkobxkc-Kzmdp syndrome 4. Paroxysmal SVT 5. RBBB 6. Vitamin-D deficiency 7. Left rotator cuff repair-September 2020 Social history Single, lives alone Works at [employer] Chews tobacco Heavy alcohol use Family history No history of early coronary artery disease Review of systems A 10 point review systems undertaken and negative except that described above. Allergies Allergy/AdvReac Type Severity Reaction Status Date / Time lisinopril AdvReac Intermediate Cough Verified 08/21/23 15:09 Home Medications Medication Instructions Recorded Confirmed Type carvedilol 12.5 mg tablet 12.5 mg PO BID #60 tabs 11/26/22 08/21/23 Rx losartan 100 mg tablet 100 mg PO DAILY #30 tabs 05/15/23 08/21/23 Rx amlodipine 5 mg tablet 10 mg (2 x 5 mg) PO DAILY #60 tabs 06/19/23 08/21/23 Rx atorvastatin 20 mg tablet 20 mg PO HS #30 tabs 06/19/23 08/21/23 Rx Patient History Medical History Hypercalcemia Vitamin D deficiency Superior labrum sxaogmur-as-krydrakri (SLAP) tear of left shoulder 2020 Full thickness rotator cuff [facility] Elevated serum creatinine Family history of colon cancer History of anesthesia complications respiratory issues during colonoscopy 10/2019 [place] - says they had to stop the procedure WPW (Kgvya-Vfxepqbqp-Uftal syndrome) no confectionery maker Hypertension Hypercholesteremia Surgical History History of arthroscopic surgery of [facility] History of arthroscopy of left shoulder October 11, 2020 History of open reduction and internal fixation (ORIF) procedure right hand--hardware removed History of colonoscopy most recent 10/2019 [facility] History of tooth extraction all top teeth Family History Mother Myocardial infarction Breast cancer Hypertension Father Colorectal cancer at 47 secondary to colorectal cancer Other No family history of adverse response to anesthesia Denies family history of Ovarian cancer Prostate cancer Social History Smoking Status: Never smoker Tobacco Type: Smokeless Tobacco (Dip or Chew) Age Started Using Tobacco: 17; Cigarettes Per Day: chews 1 can a day; Second Hand Exposure: No; Do You Dip or Chew Tobacco: Yes; Hx Alcohol Use: Yes Alcohol type: beer Alcohol Intake Frequency: 4 or More x per/Week Alcohol Intake Frequency Comment: 2-3 per day Hx Substance Use: No Preferred Language: Cymro Communication Ability: Effective Visual Impairment: Partially Limited Hearing Ability: Normal Drum Maker Required: No Beliefs That Will Affect Care: None marital status: single Current Living Situation: Alone current occupational status: employed current occupation: Construction How many Children do You have: 0 Other Information That Helps Us Care for You: No Feels Safe at Home: Yes Safety Concerns: Feels Safe At This Time Childhood Exposure to Second-Hand Smoke: Yes (father) Diet: regular caffeine: No during the past year weight has: remained stable Dental Care, Regularly: No Physical Activity Frequency: 5-6 Times per Week Physical Activity Frequency Comment: work Seatbelt Use: never Sunscreen Use: No Assistive Devices: None Physical Exam Physical Exam: In general this is a well-developed well-nourished white male in no acute distress. HEENT exam is negative. Neck is supple with full carotid upstrokes. There are no carotid bruits. Jugular venous pressure is flat at 90. There is no thyromegaly. Cardiovascular exam reveals a regular rhythm with a normal S1 and S2. No S3, S4, or murmurs are noted. Lungs are clear without rales, rhonchi, or wheezes. Abdomen is soft and nontender without bruits. Extremities reveal intact radial artery and posterior tibial pulses bilaterally. There is no peripheral edema. Results & Data Vital Signs (Past 12 Hours) Vital Signs Temp Pulse Pulse Resp BP BP Pulse Ox 08/22/23 07:10 69 12 165/105 H 97 08/22/23 06:44 66 08/22/23 06:00 64 15 153/92 H 98 08/22/23 05:00 55 L 19 139/91 96 08/22/23 04:00 55 L 19 137/85 98 08/22/23 03:00 61 156/94 H 95 08/22/23 02:00 56 L 19 141/84 H 98 08/22/23 00:39 36.5 C 64 18 142/92 H 100 O2 Del Method 08/22/23 07:10 Room Air 08/22/23 06:44 08/22/23 06:00 Room Air 08/22/23 05:00 Room Air 08/22/23 04:00 Room Air 08/22/23 03:00 Room Air 08/22/23 02:00 Room Air 08/22/23 00:39 Room Air Laboratory Results CBC notes hemoglobin 13.9, crit 40.9, white count 4.55, and platelet count [id number]. Electrolytes note a sodium of 139, potassium 4.4, chloride 109, bicarb 25, BUN 20, creatinine 0.94, and glucose of 93. High sensitivity troponin is normal at 6.4. Diagnostic Findings Echocardiogram notes normal left ventricular systolic function with ejection fraction of 55-60%. There were no wall motion abnormalities. There was mild mitral and tricuspid regurgitation. EKG on presentation notes a supraventricular tachycardia with a retrograde P wave. EKG this morning notes sinus rhythm with a right bundle branch block. PG Care Time/CCT Total # of Minutes Spent Total Time Spent with Patient: Total time spent is greater than 50% in coordination of care (as documented) at patient's floor/unit and/or counseling patient: Coding Level of Care Code 03929 IN/OBS CONSULT LVL 4,60M Diagnoses WPW (Flqqq-Bjkzuccke-Ouaer syndrome) I45.6 Paroxysmal SVT (supraventricular tachycardia) I47.10 Hypertension I10 Hypercholesteremia E78.00
--- NOTE | 2023-08-22 14:05 | Electrocardiogram Report ---
Test Reason : Blood Pressure : / mmHG Vent. Rate : 133 BPM Atrial Rate : 000 BPM P-R Int : 000 ms QRS Dur : 146 ms QT Int : 358 ms P-R-T Axes : 000 006 009 degrees QTc Int : 532 ms Supraventricular tachycardia Non-specific intra-ventricular conduction block Cannot rule out Septal infarct , age undetermined Abnormal ECG When compared with ECG of 21-AUG-2023 14:32, No significant change Confirmed by Christiano Lanier ([id number]) on 08/22/2023 2:05:07 PM Referred By: REFERRED SELF Confirmed By:Christiano Lanier
--- NOTE | 2023-08-22 14:10 | Electrocardiogram Report ---
Test Reason : Blood Pressure : / mmHG Vent. Rate : 127 BPM Atrial Rate : 000 BPM P-R Int : 000 ms QRS Dur : 140 ms QT Int : 364 ms P-R-T Axes : 000 008 020 degrees QTc Int : 529 ms Supraventricular tachycardia Right bundle branch block Abnormal ECG When compared with ECG of 21-AUG-2023 17:40, (unconfirmed) No significant change was found Confirmed by Christiano Lanier ([id number]) on 08/22/2023 2:09:48 PM Referred By: REFERRED SELF Confirmed By:Christiano Lanier
--- NOTE | 2023-08-22 14:11 | Electrocardiogram Report ---
Test Reason : Blood Pressure : / mmHG Vent. Rate : 122 BPM Atrial Rate : 000 BPM P-R Int : 000 ms QRS Dur : 146 ms QT Int : 378 ms P-R-T Axes : 000 000 008 degrees QTc Int : 538 ms Supraventricular tachycardia Right bundle branch block Abnormal ECG When compared with ECG of 21-AUG-2023 19:29, (unconfirmed) No significant change was found Confirmed by Christiano Lanier ([id number]) on 08/22/2023 2:11:07 PM Referred By: REFERRED SELF Confirmed By:Christiano Lanier
--- NOTE | 2023-08-22 14:17 | Electrocardiogram Report ---
Test Reason : Blood Pressure : / mmHG Vent. Rate : 062 BPM Atrial Rate : 062 BPM P-R Int : 190 ms QRS Dur : 148 ms QT Int : 464 ms P-R-T Axes : 040 -01 017 degrees QTc Int : 470 ms Normal sinus rhythm Right bundle branch block Abnormal ECG When compared with ECG of 21-AUG-2023 19:48, (unconfirmed) Sinus rhythm has replaced Wide QRS tachycardia Vent. rate has decreased BY 60 BPM Confirmed by Christiano Lanier ([id number]) on 08/22/2023 2:16:45 PM Referred By: REFERRED SELF Confirmed By:Christiano Lanier
--- NOTE | 2023-08-22 14:29 | Electrocardiogram Report ---
Test Reason : Blood Pressure : / mmHG Vent. Rate : 072 BPM Atrial Rate : 072 BPM P-R Int : 196 ms QRS Dur : 146 ms QT Int : 434 ms P-R-T Axes : 057 015 034 degrees QTc Int : 475 ms Normal sinus rhythm Right bundle branch block Abnormal ECG When compared with ECG of 21-AUG-2023 22:36, (unconfirmed) No significant change was found Confirmed by Christiano Lanier ([id number]) on 08/22/2023 2:29:40 PM Referred By: REFERRED SELF Confirmed By:Christiano Lanier
--- NOTE | 2023-08-22 16:10 | Discharge Summary ---
Date of Service August 22, 2023 Admission HPI Per Admitting Provider Teja is a 58-year-old male with a past medical history of Morgan Parkinson White syndrome with no history of ablation, ongoing alcohol abuse attempting to cut down and seeing a counselor, hypertension without LA/A-fib/a flutter history who presented with palpitations and was found to be in a tachyarrhythmia [id number]. Teja reported he felt well up until this morning when he felt a little lightheaded and feeling of palpitation. He reports he has not had pain at any point in his chest. No chest pressure. He is not short of breath. He reports he follows with cardiology more than a decade ago and has a history of WPW but has never had an ablation. Reports he does drink, is trying to cut back and is seeing a counselor. Currently cut back to 18-20 beers, up to 30 previously. He has not had any alcohol free days since "the ". He has never been through withdrawal, but notes he has never been without alcohol in the recent past. Last drink was last night around 7 PM. No episodes of GI bleeding, denies history of liver disease, denies upset stomach. Denies fever, chills, sweats. No recent cough. Denies aspiration events. Denies falls. Reports no other medical problems other than high blood pressure, has history of Xbafe-Hhvjfljku-Mwjsv, and thinks he is on a cholesterol medicine but does not remember the name of this. Medical History: Reviewed Medications: Reviewed Surgical History: Reviewed Family history: Reviewed Allergies: Reviewed Social History: Alcohol as noted, snuff 2 cans/day Code Status: Full Admission Exam Per Admitting Provider Physical Exam: General: A&Ox3. NAD. Cooperative. HEENT: Atraumatic, normocephalic. Vision/hearing grossly intact, pupils equal and reactive to Pulm: CTAB A&P. -wheezes, -rales, -rhonchi. Symmetrical chest rise. No increased work of breathing. No respiratory distress. Cardiac: tachycardic, -mrg. Radial pulses intact and symmetrical. Abdominal: Nontender, nondistended, soft. BS present. Extremities: Warm, dry. Strength and sensation intact in all 4 extremities. No tremor, no diaphoresis Principal Diagnosis supraventricular tachycardia, lightheadedness Discharge Exam Constitutional WD/WN, vitals as above Respiratory normal respiratory effort, lungs clear to auscultation Cardiovascular RRR, no murmur, no edema Gastrointestinal (Abdomen) normal bowel sounds, soft, nontender, no hepatosplenomegaly Psychiatric A+Ox3, euthymic affect Discharge Data Allergies Allergy/AdvReac Type Severity Reaction Status Date / Time lisinopril AdvReac Intermediate Cough Verified 08/21/23 15:09 Consultations 08/21/23 18:36 ED Decision to Admit Stat 08/21/23 23:59 Consult Cardiology Routine Hospital Course (1) Paroxysmal SVT (supraventricular tachycardia): (2) Heart palpitations: (3) Alcohol abuse: Plan (1) Tachyarrhythmia Initial EKG with rate 147, possible a flutter with 2-1 block and right bundle branch block Patient reportedly with history of delta wave/WPW with no history of ablation. Did review case with cardiology. Initially was concerning based on history of WPW, although delta wave is not noted on last baseline EKG in 2020. Due to prior history of suspected WPW patient was loaded with procainamide. Of note this is mis-documented in the EMR but did confirm with pharmacy compounding, while MAR appears that patient received 24mg/kg (2500mg), he actually received 17 mg/kg. Reviewed with Cards/EP. - At his last baseline EKG in 2020 shows no evidence of a delta wave patient does not show anterograde conduction. May have retrograde conduction, but risk of AV monty bob agents is minimal and patient has tolerated beta-bob. Suspect his underlying rhythm is SVT, ?AVNRT, with retrograde P waves present. Risk of adenosine with VT degeneration is minimal in this patient, especially as delta wave was no longer present 2020, and if he does not convert on procainamid e is a reasonable to give adenosine to treat SVT vs identify underlying atrial arrhythmia. Suspect a flutter is unlikely, A-fib is possible. Reasonable to continue heparin at this time. Remains normotensive. Patient was hemodynamically stable with BP of 130s/90s, rate slowed to 120s. Will observe and may convert following Procainamide load. If patient becomes hypotensive then will assess for synchronized cardioversion versus dosing trial, discussed and signed out to overnight provider. Cardiology was consulted. - Per recommendations of cardiology: "Patient still has retrograde conduction. Echocardiogram without any concerning findings. Follow up with Dr. Azevedo in cardiology to consider SVT ablation. Start on metoprolol succinate, 50 mg, daily and discontinue carvedilol. Continue all other home medications: amlodipine, atorvastatin, losartan. (2) WPW (Uwtxl-Luntelrql-Oaqnx syndrome) Patient with history of WPW and reported delta waves on prior EKGs, no delta wave is present on 2020 EKG in our EMR (3) Alcohol abuse No signs of withdrawal on admission, patient is trying to self taper alcohol and seeing a counselor and wishes to limited alcohol. - Patient encouraged to F/U w/ PCP for MAT (naltrexone, etc) as adjunctive treatment - Very high intake last drink 7 PM 12. Ethanol level, < 10 (on admission) Atrial arrhythmia due to alcohol abuse is a consideration Patient has not had any alcohol free days since "", stated he has 5-6 beers/day Received thiamine in the ER Given 1 dose of Valium 5 mg, and placed on a AWSS. Continue thiamine, folic acid (4) Hypertension Antihypertensives temporarily held (5) Hypercholesteremia Statin continued Total Time Total Time Spent Total Time Spent (In Minutes): see attending attestation Discharge Plan Discharge Items Patient Disposition: Home - Self-Care Reason For Visit: TACHYCARDIA W HX WPW, ETOH DETOX Discharge Diagnosis: Supra-ventricular tachycardia Activity: Resume your previous activity Non-emergency contact: Primary Care Provider Call non-emergency contact if: you have any medication questions and your pain is concerning for you Follow-up/Referrals: Evgeny Bowers CRNP [Primary Care Provider] - Diet: Regular Addtl Attending Provider Instructions: You were admitted to the hospital for palpitations and lightheadedness and resulting supraventricular tachycardia. You were treated with procainamide, thiamine, and IV fluids. A discharge summary will be sent to your primary care physician to ensure continuity of care. Please bring this discharge summary with you to your next office appointment so that your provider can review it at that time. Follow-up appointments: We have requested a follow-up appointment with your primary care physician and a [facility] research engineer marine equipment (Dr. Azevedo) within one week of discharge. Please call their office if you do not hear from them. Keep all your follow-up appointments as already scheduled. If you cannot make an appointment, notify your provider. Medications: Your medication list has been reviewed and reconciled upon discharge to ensure accuracy and continuity of care. An updated list of all your medications is included with your hospital discharge paperwork. Please review this list closely, and make note of any changes. We sent a new medication called metoprolol succinate to your pharmacy. Take metoprolol succinate, 50 mg, one tablet, daily, on a routine basis. Please discontinue the Coreg. Take your medications as instructed; do not skip a dose of your medicines. Make sure all of your doctors know every medicine you are taking (including iitq-mrh-vauruyz medicines, vitamins, and supplements). Call your primary care provider before taking any new medicines (including ylxq-dek-wdiwqmy medicines, vitamins, and supplements), because some of these may interact with your current medications, or may make your symptoms worse. Tell your primary care provider if you cannot afford your medications. CONTACT YOUR PRIMARY CARE PROVIDER if you experience any of the following: recurrent episodes of palpitations, lightheadedness chest pain, shortness of breath Difficulty following your treatment plan, or difficulty taking medications CALL 911 OR GO TO THE EMERGENCY DEPARTMENT if you experience any of the following: Sudden, severe abdominal pain or nausea/vomiting Severe chest pain, or chest pain that radiates (moves) to your jaw or arm Sudden, severe shortness of breath or difficulty breathing Thank you for allowing us to participate in your care Pending Studies at Discharge: No Stand-Alone Forms: My [facility], Smoking Cessation Medications and DC Order Prescriptions: New metoprolol succinate 50 mg tablet extended release 24 hr 50 mg PO DAILY 90 Days Qty: 90 0RF Continued losartan 100 mg tablet 100 mg PO DAILY Qty: 30 2RF Rx Instructions: PER PT "KIND OF FORGET TO TAKE MEDS, HARD FOR ME TO SWALLOW MEDS, EVEN IF I CRUSH AND MIX WITH PUDDING OR SOMETHING". amlodipine 5 mg tablet 10 mg PO DAILY Qty: 60 2RF Rx Instructions: PER PT "KIND OF FORGET TO TAKE MEDS, HARD FOR ME TO SWALLOW MEDS, EVEN IF I CRUSH AND MIX WITH PUDDING OR SOMETHING". atorvastatin 20 mg tablet 20 mg PO HS Qty: 30 3RF Rx Instructions: PER PT "KIND OF FORGET TO TAKE MEDS, HARD FOR ME TO SWALLOW MEDS, EVEN IF I CRUSH AND MIX WITH PUDDING OR SOMETHING". Discontinued carvedilol 12.5 mg tablet 12.5 mg PO BID Qty: 60 2RF Rx Instructions: PER PT "KIND OF FORGET TO TAKE MEDS, HARD FOR ME TO SWALLOW MEDS, EVEN IF I CRUSH AND MIX WITH PUDDING OR SOMETHING".must administer with a meal/food Discharge Orders: Discharge Order (Routine); Ordered 08/22/23 Ordered By: Marc Ken Admission Data Admit Date/Time: 08/21/23 20:33 Attending Provider: Samir Zamudio Admit Provider: Damaso Carrasco Primary Care Provider: Evgeny Bowers Other Providers: Damaso Carrasco; Christiano Lanier Supervising Physician Co-Signing Physician Notes I personally examined the patient and verified all rodrigues points of history and exam, discussed case, and agree with decision making with Dr Ken Feeling good and would like to go home. Cardiology input appreciated. Vitals noted, in general he is awake and alert pleasant no distress. HEENT normocephalic atraumatic mucous membranes moist. Breathing unlabored no accessory muscle use good effort. Skin shows no rashes no pallor or icterus. Neuro without focal deficits. Supraventricular tachycardianow controlledappreciate cardiology inputoutpatient EP eval. Discussed alcohol cessation and sleep apnea screening. stable for home Resident Activity Tracking Resident Involvement: Resident Care Provided Care Provided: Adult Hospital Medicine
--- NOTE | 2023-08-22 19:38 | Billing Data ---
Date of Service August 22, 2023 Coding Level of Care Code 20988 IN/OBS DISCH 30 MIN/LESS
== END 2023-08-22 17:51 | disposition home or self-care (01) | DRG 310 ==
LOC: SUATTDRO → ED 14:15 → EDINP 20:33 → SUATTDRO 20:33 → EDINP 23:59